=== PATIENT | female | born 1960 | race Caucasian/White ===

== ENCOUNTER 2025-04-19 10:22 | Emergency (ER) | payer MEDICARE, MEDICAID, SELFPAY ==
--- NOTE | ~2025-04-19 | XR_ITS ---
CLINICAL HISTORY: fall, pain limitted rom 4 views left wrist Comparison: None Findings: No carpal bone fractures or carpal malalignment. Transverse distal radial fracture without definite articular extension. There is mild angulation deformity apex directed volar direction Radial and ulnar styloid preserved. Geodes distal ulna Osteopenia. No radiopaque foreign body. Impression: 1. Transverse distal radial fracture without definite articular extension and subtle angulation deformity. This document has been electronically signed by: Krzysztof Escalona MD on 04/19/2025 12:59:46
--- NOTE | ~2025-04-19 | XR_ITS ---
CLINICAL HISTORY: fall, pain 3 views left hand Comparison: None Findings: Limited exam due to poor positioning. Comminuted distal radial fracture needs dedicated wrist x-ray. No gross dislocation No marginal erosions or overhanging osteophytes. Ulnar styloid intact. Geodes distal ulna. Normal bone mineralization and soft tissues. Carpal bones unremarkable.. No radiopaque foreign body. Impression: 1. Suboptimal exam due to poor positioning the PA projection should be repeated. Comminuted distal radial fracture needs a dedicated wrist x-ray study This document has been electronically signed by: Krzysztof Escalona MD on 04/19/2025 12:55:04
[2025-04-19 10:26] VITALS: BP 142/64; PULSE 70; RESP 18; TEMP 36.6; O2SAT 98; BMI 31.4
--- OUTSIDE RECORDS SUMMARY | 2025-04-19 11:20 | XMS_ITS | Encounter Summary ---
Author Organization Shanique Aguiar [facility] Address [address] [place] [address] Care Team Providers Care Theater Set Production Designer Name Role Phone Etelvina Matthew MD Primary Care Provid er Etelvina Matthew MD Unavailable + [phone] Reason for Visit * Reason Onset Date Comments Medication Refill 02/21/2025 Encounter Details Date Type Department Care Team (Late st Contact Info) Description 02/21[facility]2025 [facility] [address] [place] [phone] Etelvina Matthew MD [address] [place] [phone] Social History Tobacco Use Types Packs/Day Years Used Date Smoking Tobacco: Never Smokeless Tobacco: Never Alcohol Use Standard Drinks/Week Comments Never 0 (1 standard drink = 0.6 oz pur e alcohol) [facility] Utilities Answer Date Recorded In the past 12 months has e electric, gas, oil, or water company threatened to shut off services in your home? No 09/08/2023 Humiliation, Afraid, Rape, and Kick questionnair e Answer Date Recorded Within the last year, have y ou been afraid of your partner or ex-partner? No 09/08/2023 Emotionally Abused Not on file 09/08/2023 Physically Abused Not on file 09/08/2023 Sexually Abused Not on file 09/08/2023 AUDIT-C Answer Date Recorded Q1: How often do you have a drink containing alc ohol? Never 12/13/2019 Average Number of Drinks Not on file 020 Frequency of Binge Drinking Not on file 11/14 Overall Financial Resource Strain (CARDIA) Answe r Date Recorded How hard is it for you to pa y for the very basics like food, housing, medical care, and heating? Not hard at all 09/08/2023 Hunger Vital Sign Answer Date Recorded Within the past 12 months, y ou worried that your food would run out before you got the money to buy more. Never true 09/08/19 24 Ran Out of Food in the Last Year Not on file 09/08/2023 PRAPARE - Transportation Answer Date Re corded In the past 12 months, has l ack of transportation kept you from medical appointments or from getting medications? No 08/14 In the past 12 months, has l ack of transportation kept you from meetings, work, or from getting things needed for daily living? No 09/08/2023 Housing Stability Vital Sign Answer Nick e Recorded In the last 12 months, was t here a time when you were not able to pay the mortgage or rent on time? No 09/08/2023 Number of Times Moved in the Last Year Not on fi le 09/08/2023 At any time in the past 12 m [facility], were you homeless or living in a retirement (including now)? No 09/08/2023 Food Insecurity Answer Date Recorded Within the past 12 months, y ou worried that your food would run out before you got the money to buy more. Never true 09/08/19 24 Ran Out of Food in the Last Year Not on file 09/08/2023 Intimate Partner Violence Answer Date R ecorded Emotionally Abused Not on file 09/08/2023 Within the last year, have y ou been afraid of your partner or ex-partner? No 09/08/2023 Physically Abused Not on file 09/08/2023 Sexually Abused Not on file 09/08/2023 Housing Stability Answer Date Recorded Unstable Housing in the Last Year Not on file 09/08/2023 In the last 12 months, was t here a time when you were not able to pay the mortgage or rent on time? No 09/08/2023 [address] Lived in the Last Year Not on f ile 09/08/2023 AUDIT C Answer Date Recorded How often have you had a dri nk containing alcohol, in the past year? 0 09/08/2023 How many standard drinks con taining alcohol have you had on a typical day when you are drinking, in the past year? 0 0 09/08/2023 How often have you had six o r more drinks on one occasion, in the past year? 0 09/08/2023 Comments No Sex and Gender Information Value Date Recorded Sex Assigned at Female 11/19/2019 12:43 PM EDT Legal Sex Female 12:37 PM EDT Gender Identity Female 11/19/2019 12:43 PM EDT Sexual Orientation Not on file Occupation Industry Job Start Date Job End Date retired Not on file Not on file Not on file documented as of this encounter Plan of Treatment Upcoming Encounters Date Type Department Care Team (Late st Contact Info) Description 04/30/2025 8:45 AM EST Appointment [facility] Mammography [address] [place] [address] Etelvina Matthew MD [address] [place] [phone] with Resource 05/30/2025 10:20 AM EST Office Visit [facility] @ [address] [place] [address] [facility] at [address] [place] [address] Susanna Hdez, DO [address] [facility] [address] [place] [address] In Person with Physician 2025 9:00 AM EST Office Visit [facility] Gynecology [address] [place] [address] Lisa Hoskins, SALES CENTER MANAGER [address] [facility] [address] [place] [address] In Person with Nurse Practitioner 04/07/2026 8:00 AM EST Office Visit General Internal Medicine- [facility] General Internal Medicine [address] [place] [address] Etelvina Matthew MD [address] [place] [phone] In Person with Physician documented as of this encounter Visit Diagnoses Not on filedocumented in this encounter Care Teams Theater Set Production Designer Relationship Specialty Start Date End Date Etelvina Matthew MD [address] [place] [phone] PCP - General Internal Medicine 05/24/23 Etelvina Matthew MD [address] [place] [phone] PCP - Insurance Assigned PCP 09/07/23 documented as of this encounter
--- OUTSIDE RECORDS SUMMARY | 2025-04-19 11:20 | XMS_ITS | Encounter Summary ---
Author Organization Shanique Aguiar [facility] Address [address] [place] [address] Care Team Providers Care Horser Up Name Role Phone Etelvina Matthew MD Primary Care Provid er Etelvina Matthew MD Unavailable + [phone] Reason for Visit * Reason Onset Date Comments Medication Refill 04/14/2025 Encounter Details Date Type Department Care Team (Late st Contact Info) Description [facility]/14[facility] [address] [place] [address] Etelvina Matthew MD [address] [place] [phone] Age-related osteoporosis without current pathological fracture Social History Tobacco Use Types Packs/Day Years Used Date Smoking Tobacco: Never Smokeless Tobacco: Never Alcohol Use Standard Drinks/Week Comments Never 0 (1 standard drink = 0.6 oz pur e alcohol) [facility] Utilities Answer Date Recorded In the past 12 months has [employer] electric, gas, oil, or water company threatened [...] any time in the past 12 m [facility], were you homeless or living in a long-term (including now)? No 09/08/2023 Food Insecurity Answer [...] 8:45 AM EST [facility]ment [facility] [address] [address] Etelvina Matthew MD [address] [place] [address] with Resource 05/30/2025 10:20 AM EST Office Visit [facility] Endocrinology at [facility] @ [address] [place] [address] Endocrinology at [address]-[place] [address] Susanna Hdez, DO [address] [facility] [address] [place] [address] In Person with Physician 2025 9:00 AM EST Office Visit [facility] Gynecology 16 [place] [address] Lisa Hoskins, KEY ACCOUNT COORDINATOR [address] [facility] 300 [place] [address] In Person with Nurse Practitioner 04/07/2026 8:00 AM EST [facility] [address] [place] [address] Etelvina Matthew MD [address] [place] [address] In Person with Physician documented as of this encounter Visit Diagnoses Diagnosis Age-related osteoporosis without current pathological fracture documented in this encounter Care Teams Horser Up Relationship Specialty Start Date End Date Etelvina Matthew MD [address] [place] [address] PCP - General Internal Medicine 05/24/23 Etelvina Matthew MD [address] [place] [address] PCP - Insurance Assigned PCP 09/07/23 documented as of this encounter
--- OUTSIDE RECORDS SUMMARY | 2025-04-19 11:20 | XMS_ITS | Encounter Summary ---
Author Organization Shanique Aguiar [facility] Address [address] [place] [address] Care Team Providers Care Dishwasher Name Role Phone Etelvina Matthew MD Primary Care Provid er Etelvina Matthew MD Unavailable + [phone] Encounter Details Date Type Department Care Team (Late st Contact Info) Description 02/28/2024 Preprocedure Call [facility] [address] [place] [address] Alla Vazquez RN [address] [place] [address] Social History Tobacco Use Types Packs/Day Years Used Date Smoking Tobacco: Never Smokeless Tobacco: Never Alcohol Use Standard Drinks/Week Comments Never 0 (1 standard drink = 0.6 oz pur e alcohol) [facility] Utilities Answer Date Recorded In the past 12 months has e electric, gas, oil, or water [employer] threatened to shut off services in your [...] any time in the past 12 m [facility], were you homeless or living in a fci (including now)? No 09/08/2023 Food Insecurity Answer [...] 8:45 AM EST Appointment [facility] Mammography [address] [place] [address] Etelvina Matthew MD [address] [place] [phone] with Resource 05/30/2025 10:20 AM EST Office Visit [facility] Endocrinology at [facility] @ [address] [place] [address] Endocrinology at [address] [address] Susanna Hdez, DO [address] [facility] 200 [place] [address] In Person with Physician 2025 9:00 AM EST Office Visit [facility] Gynecology [address] [place] [address] Lisa Hoskins NP [address] [place] [address] In Person with Nurse Practitioner 04/07/2026 8:00 AM EST Office [facility] [address] [place] [address] Etelvina Matthew MD [address] [place] [address] In Person with Physician documented as of this encounter Visit Diagnoses Not on filedocumented in this encounter Care Teams Dishwasher Relationship Specialty Start Date End Date Etelvina Matthew MD [address] [place] [phone] PCP - General Internal Medicine 05/24/23 Etelvina Matthew MD [address] [place] [address] PCP - Insurance Assigned PCP 09/07/23 documented as of this encounter
--- OUTSIDE RECORDS SUMMARY | 2025-04-19 11:20 | XMS_ITS | Clinical Summary ---
Author Organization Shanique Agui[facility] Address [address] [place] [address] Care Team Providers Care Pocket Flap Creasing Machine Operator Name Role Phone Etelvina Matthew MD Primary Care Provid er Etelvina Matthew MD Unavailable [phone] Allergies Active Allergy Reactions Criticality Noted Date Comments Penicillins Rash Low 12/13/2019 Sulfa (Sulfonamide Antibiotics) Rash Low 11/14 Medications calcium carbonate (CALCIUM 600 ORAL) Take by mouth daily. Active multivitamin per tablet Take 1 tablet by mouth daily. Active cyanocobalamin (vitamin B-12) 100 MCG tablet Take 1 tablet (100 mcg total) by mouth daily. Active atorvaSTATin (LIPITOR) 10 MG tablet TAKE 1 TABLET BY MOUTH EVERY DAY 90 tablet 3 02/26/20 25 Active Additional Information Patient taking differently: 20 mgOral Daily, Morning, Reported on 04/04/2025 alendronate (FOSAMAX) 70 MG tabletIndication s:Age-related osteoporosis without current pathological fracture Take 1 tablet (70 mg total) by mouth every 7 days. Take in the am with glass of water, on empty stomach. 4 tablet 11 04/15/20 25 026 Active alendronate (FOSAMAX) 70 MG tabletIndication s:Age-related osteoporosis without current pathological fracture Take 1 tablet (70 mg total) by mouth every 7 days. Take in the am with glass of water, on empty stomach. 4 tablet 11 03/17/20 25 025 Discontin u([facility], Clinic, or Other Facility Administered Medication Ordered Dose Route Frequency Start Date End Date Status bevacizumab (AVASTIN) Intravitreal Inj 1.25 mgIndications:Exudative age-related macular degeneration of right eye with active choroidal neovascularization (CMS-HCC) 1.25 mg vtre Once 04/04/2025 Active Active Problems Problem Noted Date Diagnosed Date Hyperlipidemia 02/28/2022 Adenomatous polyp of ascending colon 04/03/2020 Overview (04/03/2020): Added automatically from request for surgery [id number] Polyp of colon 02/19/2020 Overview (02/19/2020): Added automatically from request for surgery [id number] Resolved Problems Problem Noted Date Diagnosed Date Resolved Date Annual physical exam 01/27/2020 022 Overview (01/27/2020): Added automatically from request for surgery [id number] Encounters Date Type Department Care Team Description 04/14[facility] [address] [place] [address] Etelvina Matthew MD Age-related osteoporosis without current pathological fracture 04/04/2025 9:45 AM EST Office Visit Department of Ophthalmology [facility] [address] [place] [phone] Dameon Orozco MD Exudative age-related macular degeneration of right eye with active choroidal neovascularization (CMS-HCC) (Primary Dx) 04/01/2025 9:30 AM EST Office Visit Department of Ophthalmology [facility] [address] [place] [phone] Randal Gery, OD Exudative age-related macular degeneration of right eye with active choroidal neovascularization (CMS-HCC) (Primary Dx); Intermediate stage nonexudative age-related macular degeneration of left eye 03/17/2025 8:30 AM EST Lab [facility] [address] [place] [address] Etelvina Matthew MD Age-related osteoporosis without current pathological fracture; Hyperlipidemia, unspecified hyperlipidemia type; Impaired fasting glucose 03/17/2025 8:00 AM EST [facility] [address] [place] [address] Etelvina Matthew MD Annual physical exam (Primary Dx); Cervical cancer screening; Breast cancer screening by mammogram; Adenomatous polyp of ascending colon; Colon cancer screening; Depression screening; Age-related osteoporosis without current pathological fracture; Hyperlipidemia, unspecified hyperlipidemia type; Impaired fasting glucose; Need for influenza vaccination; Routine eye exam 02/24/2025 [facility] [address] [address] Etelvina Matthew MD 02/21/2025 [facility] [address] [place] [phone] Etelvina Matthew MD from Last 3 Months Immunizations Immunization Administration Dates Next Due COVID-19 Vaccine (MODERNA) Bivalent Formulation (as of January 2022) 03/03/2022 COVID-19 Vaccine (PFIZER) Original Formulation (prior to May 2021) 09/19/2020,08/29/2020 COVID-19 Vaccine (MODERNA) 04/14/2021 Covid-19 vaccine (COMIRNATY) (Pfizer) 12 yrs+ 03/10/2024,03/16/2023 Influenza Vaccine - EGG FREE MDCK - PF (FLUCELVAX) 03/10/2024 Influenza Vaccine - EGG FREE MDCK - SDV (FLUCELVAX) 02/16/2021 Influenza Vaccine - STANDARD - PF (FLUZONE/FLUARIX/FLULAVAL/AFLURIA) 03/17/2025 Influenza Vaccine - STANDARD - SDV (FLUZONE/FLUARIX/FLULAVAL/AFLURIA) 03/16/2023,03/03/2022,02/11/2020 Zoster Vaccine Recombinant (Shingrix) 06/23/2020 ,12/13/2019 Family History Medical History Relation Comments Breast cancer Neg Hx Relation Status Comments Daughter Alive Social History Tobacco Use Types Packs/Day Years Used Date Smoking Tobacco: Never Smokeless Tobacco: Never Tobacco Cessation:Counseling Given: Not Answered Alcohol Use Standard Drinks/Week Comments Never 0 (1 standard drink = 0.6 oz pur e alcohol) [facility] Utilities Answer Date Recorded In the past 12 months has th e [employer], gas, oil, or water [employer] threatened to shut off services in your [...] any time in the past 12 m [facility], were you homeless or living in a half-way (including now)? No 09/08/2023 Food Insecurity Answer [...] file Not on file Not on file Last Filed Vital Signs Vital Sign Reading Time Taken Comments Blood Pressure 130/75 03/17/2025 8:29 AM EST Pulse 65 03/17/2025 8:00 AM EST Temperature 36.4 C (97.6 F) 03/14/2024 1:43 PM EDT Respiratory Rate 23 03/14/2024 4:00 PM EDT Oxygen Saturation 96% 03/17/2025 8:00 AM EST Inhaled Oxygen Concentration - - Weight 79.4 kg (175 lb) 03/17/2025 8:00 AM EST Height 157.5 cm (5' 2 ) 03/17/2025 8:00 AM EST Body Mass Index 32.01 03/17/2025 8:00 AM EST Plan of Treatment Upcoming Encounters Date Type Department Care Team (Late st Contact Info) Description 04/30/2025 8:45 AM EST Appointment [facility] Mammography [address] [place] [address] Etelvina Matthew MD [address] [place] [phone] with Resource 05/30/2025 10:20 AM EST Office Visit [facility] @ [address] [place] [address] Endocrinology at [address] [place] [phone] Susanna Hdez, DO [address] [address] In Person with Physician 2025 9:00 AM EST Office Visit [facility] [address] [place] [address] Lisa Hoskins NP 67 [facility] [address] [place] [address] In Person with Nurse Practitioner 04/07/2026 8:00 AM EST Office Visit General Internal Medicine- [facility] General Internal Medicine [address] [place] [address] Etelvina Matthew MD [address] [place] [phone] In Person with Physician Health Maintenance Due Date Last Done Comments DTaP,Tdap,and Td Vaccines (1 - Tdap) 1978 CT Colonography 2004 FIT 2004 FOBT 2004 Multitarget Stool DNA (Cologuard) 2004 Sigmoidoscopy 2004 Pneumococcal Vaccine: 50+ Years (1 of 1 - PCV) 2009 COVID-19 Vaccine ( - season) 2025 03/10/2024, 03/16/2023, 03/03/2022, Additional history exists Blood Pressure 03/17/2026 03/17/2025 Depression Screening 03/17/2026 03/17/2025, 09/08/19 24 Pap Smear 03/22/2026 03/22/2023, 01/07/2020 Breast Cancer Screening 04/12/2026 04/12/20 24, 04/10/2023, 04/06/2022, Additional history exists Hemoglobin A1c 03/17/2028 03/17/2025, 08/14, 03/16/2022, Additional history exists Cervical Cancer Screening 03/22/2028 HPV/Cotest 03/22/2028 03/22/2023, 11/0 12/2022, 01/07/2020, Additional history exists Colonoscopy 03/13/2029 03/14/2024, 02/13, 03/18/2020, Additional history exists Colorectal Cancer Screening 03/13/2029 Lipid Panel 03/17/2030 03/17/2025, 2 10/2023, 03/16/2022, Additional history exists Hepatitis C Screening Completed 12/23/2019, 020 Zoster Vaccine Completed 06/23/2020, 12/13/2019 Influenza Vaccine Completed 03/17/2025, , 03/16/2023, Additional history exists Meningococcal B Vaccines Aged Out No longer eligible based on patient's age to complete this topic Meningococcal Vaccines Aged Out No lo nger eligible based on patient's age to complete this topic Procedures Procedure Name Priority Date/Time Associated Diagnosis Comments INTRAVITREAL INJECTION, PHARMACOLOGIC AGENT - OD - RIGHT EYE Routine 04/04/2025 11:29 AM EST Exudative age-related macular degeneration of right eye with active choroidal neovascularization (CMS-HCC) OCT, RETINA - OU - BOTH EYES Routine 04/01/2025 10:09 AM EST Intermediate stage nonexudative age-related macular degeneration of left eye CBC AND DIFFERENTIAL Routine 03/17/2025 8:50 AM EST Age-related osteoporosis without current pathological fracture CBC AND DIFFERENTIAL Routine 03/17/2025 8:50 AM EST Age-related osteoporosis without current pathological fracture VITAMIN D,25OH Routine 03/17/2025 8:50 AM EST Age-related osteoporosis without current pathological fracture PHOSPHORUS Routine 03/17/2025 8:50 AM EST Age-related osteoporosis without current pathological fracture HEMOGLOBIN A1C Routine 03/17/2025 8:50 AM EST Impaired fasting glucose LIPID PANEL Routine 03/17/2025 8:50 AM EST Hyperlipidemia, unspecified hyperlipidemia type COMPREHENSIVE METABOLIC PANEL Routine 03/17/2025 8:50 AM EST Age-related osteoporosis without current pathological fracture TSH REFLEX FRT4,T3 Routine 03/17/2025 8: 50 AM EST Age-related osteoporosis without current pathological fracture MAMMO SCREENING TOMOSYNTHESIS BILATERAL Routine 04/12/2024 11:22 AM EST Annual physical exam Visit for screening mammogram COLONOSCOPY Routine 03/14/2024 3:32 PM EDT Colon cancer screening History of adenomatous polyp of colon LIQUID BASED PAP, CO-TESTING Routine 03/22/2023 11:20 AM EST Encounter for routine gynecological examination with Papanicolaou smear of cervix HIGH RISK HPV SCREEN (>30 YEARS) Routine 03/22/2023 11:20 AM EST Encounter for routine gynecological examination with Papanicolaou smear of cervix HEPATITIS C ANTIBODY Routine 12/23/2019 10:42 AM EDT Need for hepatitis C screening test from Last 3 Months or Most Recently Relevant to Health Maintenance Results * Intravitreal Injection, Pharmacologic Agent - OD - Right Eye (04/04/2025 11:29 AM EST) Anatomical Region Laterality Modality Head Right Other Narrative 04/04/2025 11:29 AM EST Time Out CONFIRMED CORRECT PATIENT AND PROCEDURE, SITE MARKED AND PATIENT CONSENTED. Anesthesia Topical anesthesia was used. Anesthetic medication(s) included proparacaine 0.5%. Procedure Preparation included 5% povidone-iodine to ocular surface, eyelid speculum. A 32g needle was used. Post-op The patient tolerated the procedure well. There were no complications. The patient received post procedure care education. Injection: 1.25 mg bevacizumab 25 mg/mL Route: Intravitreal, Site: Right Eye [facility]: [address]-0, Lot: [id number], Expiration date: 07/12/2025 Notes A 2-person time out verified 04/04/25, 11:29 AM, 2nd staff name: Blanca Brown Dameon Orozco MD OPHTHALMOLOGY SERVICES ORDERA BLES Final Result * OCT, Retina - OU - Both Eyes (04/01/2025 10:09 AM EST) Anatomical Region Laterality Modality Head Bilateral Optical Coherenc e Tomography Narrative 04/03/2025 8:32 AM EST Scan quality/reliability Right Eye View was clear. Quality: good. Left Eye View was clear. Quality: good. Notes OD: CNVM, SRF, drusen, paramacular thickening OS: drusen, (-)IRF/SRF Randal Grey OD OPHTHALMOLOGY SERVICES ORDER JORGE Edited Result - Final * (ABNORMAL) CBC and Differential (03/17/2025 8:50 AM EST) WBC 4.19 4.00 - 11.00 K/uL 03/17/2025 10:43 AM EST [facility] RBC 5.25(H) 4.10 - 5.10 M/uL 03/17/2025 10:43 AM EST [facility] Hemoglobin 14.1 12.0 - 15.3 g/dL 03/17/2025 10:43 AM [facility] Hematocrit 44.5 36.0 - 45.0 % 03/17/2025 10:43 AM [facility] MCV 85 80 - 96 fL 03/17/2025 10:43 AM [facility] RDW 13.0 11.6 - 14.6 % 03/17/2025 10:43 AM [facility] Platelet Count 178 150 - 450 K/uL 03/17/2025 10:43 AM [facility] Neutrophil 55.4 % 03/17/2025 10:43 AM [facility] Lymphocyte 32.9 % 03/17/2025 10:43 AM [facility] Monocyte 8.4 % 03/17/2025 10:43 AM [facility] Eosinophil 1.9 % 03/17/2025 10:43 AM [facility] Basophil 1.2 % 03/17/2025 10:43 AM [facility] Immature Granulocyte ([place], Myelo, Promyelocyte) 0.2 % 03/17/2025 10:43 AM [facility] Absolute Neutrophil Count 2.32 1.50 - 7.70 K/uL 03/17/2025 10:43 AM [facility] Absolute Immature Granulocyte ([place], Myelo, Promyelocyte) 0.01 0.00 - 0.09 K/uL 03/17/2025 10:43 AM [facility] Absolute Lymphocyte Count 1.38 1.20 - 3.50 K/uL 03/17/2025 10:43 AM [facility] Absolute Monocyte Count 0.35 0.00 - 1.00 K/uL 03/17/2025 10:43 AM [facility] Absolute Eosinophil Count 0.08 0.00 - 0.40 K/uL 03/17/2025 10:43 AM [facility] Absolute Basophil Count 0.05 0.00 - 0.20 K/uL 03/17/2025 10:43 AM [facility] Differential Performed Auto Diff Reported 03/17/2025 10:43 AM [facility] Blood Venipuncture / Unknown 03/17/2025 8:50 AM EST 03/17/2025 9:12 AM EST Etelvina Mon MD LAB BLOOD ORDER[place]LES [place] [address] * Vitamin D, 25-OH (03/17/2025 8:50 AM EST) `Vitamin D 25-OH Level 38 30 - 60 ng/mL [facility] [id number] 03/17/2025 11:22 AM EST [facility] Comment: Deficient: <20 ng/ml Borderline: 20-29 ng/ml Sufficient: 30-100 ng/ml Potential for Toxicity: >100 ng/ml Blood PERIPHERAL BLOOD SPECIMEN / Unknown Venipuncture / Unknown 03/17/2025 8:50 AM EST 03/17/2025 9:10 AM EST us Etelvina Mon MD LAB BLOOD ORDERABLES Final Result Performing Organization Address City/[facility]/ZIP Co de Phone Number [address] [address] * TSH with Rflex to Free T4 and T3 (03/17/2025 8:50 AM EST) TSH 4.02 0.30 - 4.50 uIU/mL [facility] [id number] 03/17/2025 11:19 AM EST [facility] Blood PERIPHERAL BLOOD SPECIMEN / Unknown Venipuncture / Unknown 03/17/2025 8:50 AM EST 03/17/2025 9:10 AM EST Etelvina Mon MD LAB BLOOD ORDERABLES [place] [address] * Phosphorus (03/17/2025 8:50 AM EST) Phosphorus 4.0 2.3 - 4.6 mg/dL [facility] [id number] 03/17/2025 11:39 AM EST [facility] Blood PERIPHERAL BLOOD SPECIMEN / Unknown Venipuncture / Unknown 03/17/2025 8:50 AM EST 03/17/2025 9:10 AM EST Etelvina Mon MD LAB BLOOD ORDERABLES Final Result [address] [address] * Hemoglobin A1C (03/17/2025 8:50 AM EST) Hemoglobin A1C 5.6 4.6 - 5.6 % 03/17/2025 10:36 AM EST [facility] Comment: 4.6 to 5.6% Normal 5.7 to 6.4% Pre-diabetes, increased risk for diabetes >= 6.5% Diabetes mellitus Blood Venipuncture / Unknown 03/17/2025 8:50 AM EST 03/17/2025 9:12 AM EST Etelvina Mon MD LAB BLOOD ORDERABLES Final Result Performing Organization Address City/[facility] Co de Phone Number [address] [address] * (ABNORMAL) Lipid Panel (03/17/2025 8:50 AM EST) Cholesterol 185 125 - 200 mg/dL [facility] [id number] 03/17/2025 11:48 AM [facility] Triglycerides 70 55 - 150 mg/dL [facility] [id number] 03/17/2025 11:48 AM [facility] HDL Cholesterol 78(H) 40 - 65 mg/dL [facility] [id number] 03/17/2025 11:48 AM [facility] LDL Cholesterol 93 <130 mg/dL [facility] [id number] 03/17/2025 11:48 AM EST [facility] Non-HDL Cholesterol 107 <190 mg/dL [facility] [id number] 03/17/2025 11:48 AM EST [facility] Comment: Normal primary prevention <190 mg/dL High risk primary prevention <160 mg/dL Secondary prevention <130 mg/dL High risk secondary prevention <100 mg/dL VLDL Cholesterol 14 8 - 71 mg/dL [facility] [id number] 03/17/2025 11:48 AM [facility] Ratio Chol/HDL 2.4 2.0 - 5.0 [facility] [id number] 03/17/2025 11:48 AM [facility] Patient Fasting Yes 11:48 AM [facility] Blood Venipuncture / Unknown 03/17/2025 8:50 AM EST 03/17/2025 9:10 AM EST us Etelvina Mon MD LAB BLOOD ORDERABLES Final Result [facility] [address] [place] [address] * (ABNORMAL) Comprehensive Metabolic Panel (03/17/2025 8:50 AM EST) Sodium 141 135 - 146 mmol/L [facility] [id number] 03/17/2025 11:39 AM [facility] Potassium 4.7 3.4 - 5.2 mmol/L [facility] [id number] 03/17/2025 11:39 AM [facility] Comment:Plasma sample Chloride 106 98 - 110 mmol/L [facility] [id number] 03/17/2025 11:39 AM [facility] Total CO2/Bicarbonate 25 24 - 32 mmol/L [facility] [id number] 03/17/2025 11:39 AM [facility] Anion Gap 10 2 - 15 mmol/L [facility] [id number] 03/17/2025 11:39 AM [facility] Anion Gap [facility] [id number] 03/17/2025 11:39 AM [facility] BUN 10 7 - 24 mg/dL [facility] [id number] 03/17/2025 11:39 AM [facility] Creatinine, Blood 0.73 0.50 - 1.10 mg/dL [facility] [id number] 03/17/2025 11:39 AM [facility] Glucose, Blood 106 70 - 118 mg/dL [facility] [id number] 03/17/2025 11:39 AM [facility] Calcium 9.0 8.5 - 10.5 mg/dL [facility] [id number] 03/17/2025 11:39 AM [facility] Total Protein 8.4(H) 6.2 - 8.2 g/dL [facility] [id number] 03/17/2025 11:39 AM [facility] Albumin, Blood 4.0 3.4 - 5.2 g/dL [address] 03/17/2025 11:39 AM [facility] Globulin Result 4.4(H) 2.0 - 4.0 g/dL [address] 03/17/2025 11:39 AM [facility] AST (SGOT) 23 11 - 40 U/L [address] 03/17/2025 11:39 AM [facility] ALT (SGPT) 22 4 - 35 U/L [address] 03/17/2025 11:39 AM [facility] Alkaline Phosphatase 67 30 - 115 U/L [address] 03/17/2025 11:39 AM [facility] Total Bilirubin 0.6 0.0 - 1.2 mg/dL [address] 03/17/2025 11:39 AM [facility] Estimated GFR(CKD-EPI) 91 >=60 mL/min/BS A [address] 03/17/2025 11:39 AM [facility] Comment:This Cr-based equati on underestimates GFR in patients with increased muscle mass. Order CYSTATIN C WITH GFR ESTIMATE, [id number], if additional evaluation of renal function is needed. Blood PERIPHERAL BLOOD SPECIMEN / Unknown Venipuncture / Unknown 03/17/2025 8:50 AM EST 03/17/2025 9:10 AM EST us Etelvina Mon MD LAB BLOOD ORDERABLES Final Result Performing Organization Address City/State/[facility] Co de Phone Number [address] [address] * Mammo Screening Tomosynthesis Bilateral (04/12/2024 11:22 AM EST) Anatomical Region Laterality Modality Breast Bilateral Mammography 04/24/2024 3:58 PM EST Impressions 04/24/2024 3:54 PM EST Bilateral breasts, ACR BI-RADS category 1: Negative, no evidence of malignancy. Normal interval follow-up is recommended in 12 months. Overall assessment: Negative RECOMMENDATION: BIRADS CATEGORY: 1 - Negative Recommendation: Routine follow-up mammogram in 1 year Recall Interval: 12 months Narrative 04/24/2024 3:54 PM EST EXAM DESCRIPTION: Screening Mammogram TECHNIQUE: This exam was acquired on a Full Field Digital Mammography unit. Both full field digital mammographic and tomosynthesis images were obtained and reviewed as part of the examination. The R2 CAD mammography reader was employed for this case. COMPARISON: Prior available mammographic studies. INDICATION: Screening. FINDINGS: Breast tissue density: The breasts are heterogeneously dense, which may obscure small masses. No significant masses, calcifications or other abnormalities are noted. There has been no significant interval change. Procedure Note Gricelda Pichardo MD - 04/24/2024 EXAM DESCRIPTION: Screening Mammogram TECHNIQUE: This exam was acquired on a Full Field Digital Mammography unit. Both fullfield digital mammographic and tomosynthesis images were obtained andreviewed as part of the examination. The R2 CAD mammography reader wasemployed for this case. COMPARISON: Prior available mammographic studies. INDICATION: Screening. FINDINGS: Breast tissue density: The breasts are heterogeneously dense, which mayobscure small masses. No significant masses, calcifications or other abnormalities are noted.There has been no significant interval change. IMPRESSION: Bilateral breasts, ACR BI-RADS category 1: Negative, no evidence of malignancy. Normal interval follow-up isrecommended in 12 months. Overall assessment: Negative RECOMMENDATION: BIRADS CATEGORY: 1 - Negative Recommendation: Routine follow-up mammogram in 1 year Recall Interval: 12 months Etelvina Mon MD IMG MAMMOGRAPHY [facility] Final Result * COLONOSCOPY (03/14/2024 3:32 PM EDT) Anatomical Region Laterality Modality Endoscopy Narrative 03/14/2024 3:33 PM EDT Table formatting from the original result was not included. Impression Subcentimeter polyp in the proximal ascending colon was removed with cold snare All specimens were reviewed by doctor and oil bay technician using name, medical record number and date of . Colon was otherwise normal. Small hemorrhoids Recommendation Await pathology results Repeat colonoscopy in 5 years, due: 03/13/2029 Personal history of colon polyps Indication Colon cancer screening, History of adenomatous polyp of colon Staff Staff Role Grisel Contreras, RN Endo Nurse David Pierre CNA Director [employer] Dariela Bryant MD Proceduralist Medications fentaNYL (PF) 50 mcg/mL injection 75 mcg* *Some administrations are not included in total midazolam (VERSED) injection 2 mg (Totals for administrations occurring from 1457 to 1531 on 03/14/24) Preprocedure A history and physical has been performed, and patient medication allergies have been reviewed. The patient's tolerance of previous anesthesia has been reviewed. The risks and benefits of the procedure and the sedation options and risks were discussed with the patient. All questions were answered and informed consent obtained. ASA Score 2 Details of the Procedure The patient underwent moderate sedation, which was administered by the procedural nurse. The patient's blood pressure, ECG, heart rate, level of consciousness, oxygen, respirations and ETCO2 were monitored throughout the procedure. A digital rectal exam was performed. The scope was introduced through the anus and advanced to the cecum. Retroflexion was performed in the rectum. The quality of bowel preparation was evaluated using the [place] Bowel Preparation Scale with scores of: right colon = 3, transverse colon = 3, left colon = 3. The total BBPS score was 9. Bowel prep was adequate. The patient experienced no blood loss. The procedure was not difficult. The patient tolerated the procedure well. There were no apparent adverse events. The attending physician was present for the entire procedure and supervised the sedation. CO2 used for insufflation. Events Procedure Events Event Event Time ENDO SCOPE IN TIME 03/14/2024 3:15 PM ENDO CECUM REACHED 03/14/2024 3:20 PM ENDO SCOPE OUT TIME 03/14/2024 3:29 PM Findings One 4 mm sessile and benign-appearing polyp in the proximal ascending colon; performed cold snare with complete en bloc removal and retrieved specimen All specimens were reviewed by doctor and oil bay technician using name, medical record number and date of . Colon was otherwise normal. External small hemorrhoids observed during perianal exam Specimens ID Type Source Tests Collected by Time A : polyp Tissue Large Intestine, Right/Ascending Colon SURGICAL PATHOLOGY TISSUE EXAM Dariela Bryant MD 03/14/2024 3:21 PM Surgeon/Proceduralist Generic GI PROCEDURE ORDER JORGE Final Result * High Risk HPV Screen (>30 years) (03/22/2023 11:20 AM EST) HPV 16 Negative Negative 03/23/2023 1:38 PM EST [facility] HPV 18 Negative Negative 03/23/2023 1:38 PM EST [facility] Other High Risk HPV Negative Negative 03/23/2023 1:38 PM EST [facility] HPV Comment Note: 03/23/2023 1:38 PM EST [facility] Comment: High Risk types detected by this test: 16, 18, 31, 33, 35, 39, 45, 51, 52, 56, 58, 59, 66, 68. A negative result does not preclude the presence of HPV infection because results depend on adequate specimen collection, absence of inhibitors and sufficient DNA to be detected. Method: Polymerase Chain Reaction, PCR xOther CERVIX UTERI STRUCTURE / Unknown 03/22/2023 11:20 AM EST 03/23/2023 8:59 AM EST Lisa Hoskins NP MICROBIOLOGY - GENERAL ORDER [place] [address] * LB PAP Smear, Screening (03/22/2023 11:20 AM EST) Case Report Gynecologic Cytology Report Case: [id number] Authorizing Provider: Lisa Hoskins NP Collected: 03/22/2023 11:20 AM Ordering Location: Department of Gynecology Received: 03/22/2023 01:58 PM First Screen: VANESSA Jolley Specimen: LIQUID-BASED PAP, SCREENING, Cervix 03/29/2023 11:47 AM EST [facility] Adequacy SATISFACTORY FOR EVALUATION, ENDOCERVICAL/PARKER SFORMATION ZONE COMPONENT PRESENT 03/29/2023 11:47 AM EST [facility] Interpretation NEGATIVE FOR INTRAEPITHELIAL LESION / MALIGNANCY. 03/29/2023 11:47 AM EST [facility] at 1147 EST Other Findings ATROPHIC SAMPLE. 03/15 11:47 AM [facility] Clinical Information cervical cancer screening 03/29/2023 11:47 AM [facility] Cyto Gross Description Received 1 ThinPrep preservative fluid collection vial labeled with the patient's name and medical record number or date of . 03/29/2023 11:47 AM [facility] Methods and Disclaimers This specimen was successfully pre-screened using the [employer] Automated ThinPrep Imaging System. Following automated imaging, selected cline from the slide were reviewed by a sba underwriter, and if indicated, by a pathologist. Cervicovaginal Cytology ( Pap Smear ) is a screening test with inherent, but low, probability of error, and is intended to aid in the detection of cervical squamous cell carcinoma and its precursors. Although very effective, the false negative rate for the ThinPrep method has been reported in the literature to be approximately 2%. 03/29/2023 11:47 AM [facility] Genital CERVIX UTERI STRUCTURE / Unknown 03/22/2023 11:20 AM EST 03/22/2023 1:58 PM EST us Lisa Hoskins NP PATHOLOGY/CYTOLOGY ORDERABLE S Final Result [address] [id number] from Last 3 Months or Most Recently Relevant to Health [place] [id number] [facility] MEDICARE [facility] MEDICARE [facility] MEDICARE 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
--- NOTE | 2025-04-19 11:37 | ED_ITS ---
HPI - Extremity Problem General Chief complaint: Extremity Injury, Upper Stated complaint: fall l arm inj Time Seen by Provider: 04/19/25 11:09 Source: patient, RN notes reviewed and old records reviewed Mode of arrival: ambulatory History of Present Illness ED Provider: Ericka Harris PA-C HPI Narrative: 64-year-old female with no significant past medical history presenting to the ED complaining of left wrist pain s/p mechanical trip and fall [employer]. States she tripped over a step, FOOSH injury, denies head trauma or LOC. Right-hand dominant. Reports associated paresthesias to left hand. Denies weakness, fever Related Data Previous Rx's ?Medication ?Instructions ?Recorded oxycodone 5 mg tablet 5 mg PO Q6H PRN pain (scale score 04/19/25 7-10) 3 days #9 tabs Allergies Allergy/AdvReac Type Severity Reaction Status Date / Time Penicillins (PCN) Allergy Unknown Verified 04/19/25 10:28 Sulfa (Sulfonamide Allergy Unknown Verified 04/19/25 10:28 Antibiotics) Review of Systems Review of Systems: Yes all other systems are reviewed and are negative Constitutional: Constitutional: Reports as per HPI [facility] Past Medical History Attestation statement: The following information was validated with the patient. Source: old records reviewed Physical Exam Vital Signs: Vital Signs: Last Vital Signs Temp 98 F 04/19/25 14:38 Pulse 70 04/19/25 14:38 Resp 18 04/19/25 14:38 BP 142/64 H 04/19/25 14:38 Pulse Ox 98 04/19/25 14:38 O2 Del Method Room Air 04/19/25 14:38 BMI result Body Mass Index 31.4 Const: General: cooperative, healthy appearing and no acute distress Orientation/consciousness: patient oriented x3 Limitations: no limitations HEENT: Head: Yes normal to inspection and Yes atraumatic Ears: hearing grossly normal bilaterally General nose exam: Normal external nose present Face and sinus: Yes normal facial exam Eyes: General: appearance normal, both eyes and all related structures EOM: EOMs intact bilaterally Neck: Neck: Yes normal visual inspection and Yes no meningeal signs Resp: Effort & Inspection: normal respiratory effort and no respiratory distress Cardio: Rate: regular rate Skin: Rashes: no rashes Wounds: no wounds Neuro: General: patient oriented x3, tone normal and no meningeal signs Cranial nerves: Yes CN's II-XII intact bilaterally Gait exam (Neuro): Normal gait present Extrem: Other: Left wrist with appreciable swelling. Diffusely tender to palpation. Limited ROM secondary to pain. Neurovascularly intact. No snuffbox tenderness. Left shoulder, elbow and digits nontender Course Course Course Narrative: XR hand LT min 3V Impression: 1. Suboptimal exam due to poor positioning the PA projection should be repeated. Comminuted distal radial fracture needs a dedicated wrist x-ray study XR wrist LT min 3V Impression: 1. Transverse distal radial fracture without definite articular extension and subtle angulation deformity. > sugar-tong splint applied. Patient is to follow up with Orthopedics. Results discussed with patient including worrisome signs and symptoms and strict return precautions, and when to return to the emergency department. They verbalized understanding and feel safe for discharge at this time. Medications Administered Discontinued Medications Generic Name Dose Route Start Last Admin Trade Name Freq PRN Reason Stop Dose Admin Oxycodone HCl 5 mg 04/19/25 11:32 04/19/25 12:13 Oxycodone Hcl Immed Release 5 Mg Tablet PO 04/19/25 11:33 5 mg ONCE ONE Administration Medical Decision Making Medical Decision Making MDM Narrative: 64-year-old female with no significant past medical history presenting to the ED complaining of left wrist pain s/p mechanical trip and fall [employer]. On exam vital signs stable, NAD, nontoxic appearing, physical exam as noted above. Concern for fracture vs sprain. No evidence of septic joint/arthritis Plan: X-rays, pain control Please refer to course for remaining clinical decision making, interpretation of labs/imaging results, and discussions with consultants and/or family members. Differential Diagnosis Differential Diagnoses: The differential diagnosis associated with the presentation includes As above Independent Interpretation I performed an independent interpretation of an: Plain X-Ray Radiology Impression Discussion of test interpretation with radiology: I have reviewed the radiologist's reading. External Record Review External record reviewed: Inpatient record, Office record, Outpatient record, Prior outpatient labs, Prior outpatient radiology, Primary care record and Outside ED record Tests considered The following testing was considered but not selected: As above Prescription Management I considered prescription management with: Pain Medication Chronic Conditions Patient?s care impacted by: Other Social Determinants Patient?s care significantly limited by Social Determinants of Health including: Other Social Determinant of Health Procedures Orthopedic Splinting/Casting Injury #1: Side: left Upper Extremity Injury Location: wrist Upper Extremity Immobilizer: sling/shoulder immobilizer and sugar tong splint Discharge Plan Discharge Clinical Impression: Distal radius fracture, left Patient Disposition: Home, Self-Care Instructions: Wrist Fracture in Adults (ED) Additional Instructions: You have a transverse distal radial fracture with subtle angulation Keep splint on, dry, clean, you sling as needed Ice and elevate If fingers become increasingly swollen, numb, discolored or pain is unbearable remove splint and return to ED immediately You need to follow up with category specialist. Call Monday to make an appointment Oxycodone as an opiate pain medication, take only when pain is severe for the next 3 days In addition take Tylenol and Motrin at home Prescriptions: New oxycodone 5 mg tablet 5 mg PO Q6H PRN (Reason: pain (scale score 7-10)) 3 Days Qty: 9 0RF Rx Instructions: Partial Fill upon patient request. [place]: [facility] [facility] [place]Provider Group] - 1 week Interventions: ED Discharge Assessment Last Done: 04/19/25 14:38 Discharge Date/Time: 04/19/25 14:38 Print Language: Jordanian
[2025-04-19] MEDS: oxyCODONE HCl Immed Release 5 MG TABLET PO (12:13)
[2025-04-19 14:38] VITALS: BP 142/64; PULSE 70; RESP 18; TEMP 36.6; O2SAT 98
== END 2025-04-19 14:38 | disposition home or self-care (01) ==
PROVIDERS: Emergency Provider Emergency Medicine; PCP Thoracic Surgery (Cardiothoracic Vascular Surgery)
DX: S52.502A Unspecified fracture of the lower end of left radius, initial encounter for closed fracture (principal); M25.532 Pain in left wrist; M79.642 Pain in left hand; X50.9XXA Other and unspecified overexertion or strenuous movements or postures, initial encounter; Y93.01 Activity, walking, marching and hiking; Y92.9 Unspecified place or not applicable; Y99.8 Other external cause status
CPT/HCPCS: 29125; 73110; 73130; 99283; 99284